=== PATIENT | male | born 1975 | race Asian ===

== ENCOUNTER 2024-07-26 08:53 | Emergency (ER) | payer OTHER ==
[2024-07-26 09:03] VITALS: BP 133/89; PULSE 84; RESP 18; TEMP 97.8; BMI 23.0
[2024-07-26] MEDS ORDERED: LIDOCAINE 4% PATCH TP ONE (09:40)
[2024-07-26] MEDS ORDERED: KETOROLAC TROMETHAMINE 30 MG/1 ML VIAL ONE (09:41)
[2024-07-26] MEDS ORDERED: METHOCARBAMOL 500 MG TABLET ONE (09:41)
[2024-07-26] MEDS: LIDOCAINE 5% TOPICAL PATCH TP ONE (09:49)
[2024-07-26] MEDS: METHOCARBAMOL 500 MG TABLET PO ONE (09:51)
[2024-07-26] MEDS: IBUPROFEN 400 MG TABLET (FP) PO ONE (09:51)
[2024-07-26] MEDS ORDERED: ACETAMINOPHEN 500 MG TABLET (FP) ONE (11:03)
[2024-07-26] MEDS: ACETAMINOPHEN 500 MG TABLET (FP) PO ONE (11:05)
[2024-07-26] MEDS: KETOROLAC TROMETHAMINE 30 MG/1 ML VIAL IM ONE ×2 (12:27→12:28)
[2024-07-26] MEDS ORDERED: LIDOCAINE PATCH REMOVAL MC ONE (22:00)
== END 2024-07-26 12:29 | disposition home or self-care (01) ==
LOC: JERFT 08:53
PROC: 3E0133Z Introduction of Anti-inflammatory into Subcutaneous Tissue, Percutaneous Approach (ICD-10-PCS; principal; 2024-07-26)
DX: M54.50 Low back pain, unspecified (principal)
CPT/HCPCS: 72100-TC-FY; 96372; 99284-25